=== PATIENT | male | born 1975 | race Caucasian/White ===

== ENCOUNTER 2020-01-05 10:57 | Outpatient (CLI) | payer BC, SELFPAY ==
--- NOTE | 2020-01-05 10:44 | DI.RAD_ITS ---
EXAM: XR LUMBAR SPINE COMPLETE CLINICAL HISTORY: BACK PAIN WITH RADICULOPATHY, M54.16. TECHNIQUE: 2D digital imaging was performed. COMPARISON: No exams were available for comparison FINDINGS: There are 5 lumbar type vertebral bodies. There is normal alignment. There does appear to be spondy lolysis at L5 but no spondylolisthesis. No acute fracture or subluxation is seen. The bones are nor crayn mineralized. The disc spaces are well maintained. The soft tissues are unremarkable. IMPRESSION: Unremarkable radiographs of the lumbar spine. DATA REPOSITORY: RADIATION DOSE DELIVERED:
== END 2020-01-05 11:17 ==
PROVIDERS: PCP Physician Assistant; Visit Provider Nurse Practitioner
DX: M54.16 Radiculopathy, lumbar region (principal); M43.06 Spondylolysis, lumbar region
CPT/HCPCS: 72110

== ENCOUNTER 2021-01-30 01:55 | Outpatient (CLI) | payer BC, SELFPAY ==
--- NOTE | 2021-01-30 | DI.MRI_ITS ---
Exam(s) MR UPPER JOINT LT WO EXAM: MR UPPER JOINT LT WO CLINICAL HISTORY: LT SHOULDER PAIN AND INSTABILITY, WORSENING, H/O OLD DISLOCATION,M25.512. TECHNIQUE: Multiplanar multisequence MRI was performed. COMPARISON: CR XR SHOULDER LT COMPLETE 2+V from 01/30/2021 FINDINGS: BONES: There is no fracture or contusion pattern. JOINTS: Kdaf-ew-fhayvarp degenerative changes are seen at the acromioclavicular joint. The glenohume ral joint is normal. TENDONS: Supraspinatus: Unremarkable. Infraspinatus: Unremarkable. Subscapularis: Unremarkable. [place]: Unremarkable. Biceps and [place]: Unremarkable. MUSCLES: Unremarkable. GLENOID LABRUM: Unremarkable on this noncontrast examination. SOFT TISSUES: Unremarkable. LIGAMENTS: Unremarkable. OTHER: Subacromial and subdeltoid bursae are unremarkable. IMPRESSION: Moderate degenerative changes of the acromioclavicular joint. DATA REPOSITORY:
--- NOTE | 2021-01-30 14:44 | DI.RAD_ITS ---
Exam(s) XR SHOULDER LT COMPLETE 2+V EXAM: XR SHOULDER LT COMPLETE 2+V CLINICAL HISTORY: LT SHOULDER PAIN, M25.512,INSTABILITY, WORSENING, H/O OLD DISLOCATIONS. TECHNIQUE: 2D digital imaging was performed. COMPARISON: No exams were available for comparison FINDINGS: No acute fracture or dislocation. The glenohumeral joint is well maintained. Mild hypertrophic brunson ges are seen at the acromioclavicular joint. The bones are normally mineralized. The soft tissues a re unremarkable. IMPRESSION: Degenerative changes of the left AC joint. DATA REPOSITORY: RADIATION DOSE DELIVERED:
== END 2021-01-30 02:15 ==
PROVIDERS: PCP Physician Assistant; Visit Provider Physician Assistant
DX: M19.012 Primary osteoarthritis, left shoulder (principal); M25.312 Other instability, left shoulder; Z87.828 Personal history of other (healed) physical injury and trauma
CPT/HCPCS: 73030; 73221

== ENCOUNTER 2021-09-30 04:06 | Outpatient (CLI) | payer BC, SELFPAY ==
[2021-09-30 08:16] LABS: Source Nasal/Nares
[2021-09-30 08:58] LABS: COVID-19 PCR Negative (Negative)
== END 2021-09-30 04:07 | disposition home or self-care (01) ==
LOC: LBO 04:06
PROVIDERS: PCP Physician Assistant; Visit Provider Student in an Organized Health Care Education/Training Program
DX: Z20.822 Contact with and (suspected) exposure to COVID-19 (principal); Z01.818 Encounter for other preprocedural examination
CPT/HCPCS: 87635

== ENCOUNTER 2021-10-01 06:11 | Day surgery (SDC) | payer BC, SELFPAY ==
[2021-10-01 06:37] VITALS: BP 137/102; PULSE 79; RESP 16; TEMP 36.8; O2SAT 97
--- NOTE | 2021-10-01 06:57 | W.ANESPRE ---
General Info Date of Service Date Performed: 10/01/21 Height: 5 ft 11.75 in Weight: 114.1 kg Body Mass Index (BMI): 34.3 Surgical Procedure: Operation Date: 10/01/21 07:40 Proposed Procedure Side Surgeon p Wrist ECTR Right Anthony Carreon MD Meds Allergies and Home Medications Allergies Allergy/AdvReac Type Severity Reaction Status Date / Time No Known Allergies Allergy Verified 10/01/21 06:30 Home Medication Medication Instructions Recorded omeprazole 40 mg capsule,delayed 40 mg PO DAILY tab-cap 07/06/17 release golimumab 50 mg/0.5 mL 50 mg SUBCUT QMONTH 02/26/21 subcutaneous pen injector (Simponi) metoprolol succinate 25 mg 25 mg PO DAILY 02/26/21 tablet,extended release 24 hr valsartan 40 mg tablet (Diovan) 160 mg PO BID tab 02/26/21 folic acid 1 mg tablet 2 mg PO DAILY tab 06/24/21 methotrexate (PF) 20 mg/0.8 mL 20 mg SUBCUT QWEEK ml 06/24/21 subcutaneous syringe apremilast 30 mg tablet (Otezla) 30 mg PO BID 08/29/21 acetaminophen 500 mg tablet 1,000 mg PO Q8H PRN #60 tab 10/01/21 fluticasone 250 mcg-salmeterol 50 1 inh INHALATION DAILY 10/01/21 mcg/dose blistr powdr for inhalation (Advair Diskus) meloxicam 15 mg tablet 15 mg PO DAILY PRN #30 tab 10/01/21 Current Visit Medications: Current Medications Generic Name Dose Route Start Last Admin Trade Name Alexandrq PRN Reason Stop Dose Admin Ringer's Solution 1,000 mls @ 80 mls/hr 10/01/21 06:00 IV 10/24/21 23:59 INFUSION PATRICIA Cefazolin Sodium/Dextrose 2 gm in 50 mls @ 100 mls/hr 10/01/21 06:00 Ancef Duplex IVPB 10/01/21 23:59 PREOP PATRICIA IV Miscellaneous Supplies 1 each 10/01/21 06:00 Iv Access IV 10/24/21 23:59 DIRECTED PATRICIA Sodium Chloride 0 ml 10/01/21 06:00 Normal Saline Flush 10 Ml Syr IV 10/24/21 23:59 PRN PRN Sodium Chloride 0 ml 10/01/21 06:00 Normal Saline 10 Ml Vial IJ 10/24/21 23:59 DIRECTED PRN Sterile Water 0 ml 10/01/21 06:00 Water,Injection,Sterile 10 Ml Vial IJ 10/24/21 23:59 DIRECTED PRN PFSH Active Problems Active Problems: Problem Status Onset Code Arthritis of left acromioclavicular joint M19.012 SLAP lesion of left shoulder S43.432A Instability of left shoulder joint M25.312 Labral tear of left hip joint S73.192A Carpal tunnel syndrome of right wrist G56.01 Medical History Medical History Asthma GERD (gastroesophageal reflux disease) History of meniscal tear Hypertension Psoriatic arthritis Medical History Comments:: Pt. stated he had a previous endoscopy and stated he was told he had a narrowing of his airway. Pt. states he has nausea with general anesthesia Surgical History Surgical History Hx of endoscopy Pt. stated he had a previous endoscopy and stated he was told he had a narrowing of his airway S/P arthroscopic knee surgery Tobacco Smoking/Tobacco Use Status: Current-Occasional Tobacco Type: cigars Alcohol Alcohol Intake: current Alcohol intake frequency: a few times a month Alcohol type: beer and hard liquor Substance Use Substance use: Never Substance use type: does not use Details: alcohol: t-4, beer Vital Signs and Lab Results Vital Signs Most Recent Vital Signs in EMR: Most Recent Vital Signs Temp Pulse Resp BP Pulse Ox 36.8 C 79 16 137/102 H 97 10/01/21 06:37 10/01/21 06:37 10/01/21 06:37 10/01/21 06:37 10/01/21 06:37 Lab Results Blood Type / Crossmatch: No Data to Display Complete Blood Count: No Data to Display Complete Metabolic Panel: No Data to Display Liver Function Panel: No Data to Display Coagulation Panel: No Data to Display Cardiac Panel: No Data to Display Arterial Blood Gas: No Data to Display Venous Blood Gas: No Data to Display Pancreas Panel: No Data to Display Thyroid Panel: No Data to Display Infectious Disease: Coronavirus (COVID-19)(PCR) Negative (Negative) 09/30/21 05:55 09/30/21 Coronavirus 2019 Source Nasal/Nares 09/30/21 05:55 09/30/21 Blood Cultures: No Data to Display Toxicology Panel: No Data to Display Anesthesia Assessment and Plan Anesthesia History Personal History: PONV Family History: No Family History of Anesthesia Complications Exercise Tolerance Exercise Tolerance: Metabolic Equivalents>4 Pertinent Negatives Pertinent Negatives: No Major Pulmonary Symptoms or Complaints Cardiac & Pulmonary Exam Cardiac Exam: Normal S1/S2 Heart Sounds Pulmonary Exam: Clear Bilateral Breath Sounds Implantable Cardiac Device Does patient have a Pacemaker or an ICD?: No Airway Exam Known Difficult Airway: No Previous Airway Comments:: Reports during a previous EGD the anesthesia providers let him know that he had a narrowing of his airway. Mallampati Class: 2 Mouth Opening: Normal (> 3cm) Thyromental Distance: Greater than 3 cm Neck Range of Motion: Full ROM Neck Circumference: Thick Teeth Condition: Normal Dentition Airway Comments: Non-compliant with CPAP ASA Classification ASA Score: ASA 2 Emergency Case?: No NPO Status NPO Status: NPO Clears >2 hours, Solids >8 hours Anesthesia Plan Resuscitation Status: Full Code Anesthesia Technique: General Anesthesia Airway Planned: Natural Airway Monitors Used: Standard Monitors
[2021-10-01] MEDS: Lactated Ringers 1,000 ML 80 ML IV (06:58)
[2021-10-01 06:59] VITALS: BMI 34.3
--- NOTE | 2021-10-01 07:03 | W.PREOPHP ---
Assessment and Plan Assessment and plan (1) Carpal tunnel syndrome of right wrist: Status: Acute Assessment and plan: Ian is a 46-year-old who has carpal tunnel syndrome of the right side. At the previous office visit, I offered a carpal tunnel release. Once again,I discussed the technical details of carpal tunnel release and that I perform an endoscopic release, but would make a larger, open, incision if necessary for visualization. I discussed the risks of the procedure to include, but not limited to, bleeding, infection, palmar pain, stiffness, damage to nerves, damage to vessels, damage to tendons, weakness, recurrence, and incomplete release. Given these risks, Ian desires to proceed. History of Present Illness Narrative: Ian is a 46-year-old who has carpal tunnel syndrome of the right hand. He has been seen in the office for this diagnosis. Please see the office note for complete detailed history. He has no changes to his history. No new medical changes. No chest pain or shortness of breath. COVID-19 negative. Review of Systems All systems reviewed & are unremarkable except as noted in HPI and below PFSH All Active Problems Arthritis of left acromioclavicular joint (Acute) SLAP lesion of left shoulder (Acute) Instability of left shoulder joint (Acute) Labral tear of left hip joint (Acute) Carpal tunnel syndrome of right wrist (Acute) Medical History Asthma GERD (gastroesophageal reflux disease) History of meniscal tear Hypertension Psoriatic arthritis Surgical History Hx of endoscopy Pt. stated he had a previous endoscopy and stated he was told he had a narrowing of his airway S/P arthroscopic knee surgery Family History Father Hypertension Hyperlipidemia Diabetes Heart disease Mother Hypertension Multiple sclerosis Social History Smoking/Tobacco Use Status: Current-Occasional Tobacco Type: cigars Smoking risk assessment performed?: Yes Alcohol Intake: current Alcohol Intake frequency: a few times a month Alcohol type: beer and hard liquor Drug use: Never Substance use type: does not use Details: alcohol: t-4, beer Household members: family Number of Children: 1 current occupation: [employer] Current gender identity: male Do you feel safe at home: Yes Do you feel safe in your relationship?: Yes Meds Allergies and Home Medications Allergies Allergy/AdvReac Type Severity Reaction Status Date / Time No Known Allergies Allergy Verified 10/01/21 06:30 Home Medications Medication Instructions Recorded Confirmed Type omeprazole 40 mg capsule,delayed 40 mg PO DAILY tab-cap 07/06/17 10/01/21 History release golimumab 50 mg/0.5 mL 50 mg SUBCUT QMONTH 02/26/21 10/01/21 History subcutaneous pen injector (Simponi) metoprolol succinate 25 mg 25 mg PO DAILY 02/26/21 10/01/21 History tablet,extended release 24 hr valsartan 40 mg tablet (Diovan) 160 mg PO BID tab 02/26/21 10/01/21 History folic acid 1 mg tablet 2 mg PO DAILY tab 06/24/21 10/01/21 History meloxicam 15 mg tablet 15 mg PO DAILY PRN 06/24/21 10/01/21 History methotrexate (PF) 20 mg/0.8 mL 20 mg SUBCUT QWEEK ml 06/24/21 10/01/21 History subcutaneous syringe apremilast 30 mg tablet (Otezla) 30 mg PO BID 08/29/21 10/01/21 History fluticasone 250 mcg-salmeterol 50 1 inh INHALATION DAILY 10/01/21 10/01/21 History mcg/dose blistr powdr for inhalation (Advair Diskus) Exam Resp Auscultation: clear to auscultation bilaterally Cardio Rate: regular rate Rhythm: regular rhythm Results Last Vital Signs Temp 36.8 C 10/01/21 06:37 Pulse 79 10/01/21 06:37 Resp 16 10/01/21 06:37 BP 137/102 H 10/01/21 06:37 Pulse Ox 97 10/01/21 06:37
--- NOTE | 2021-10-01 07:07 | PDOC.DSDIS_ITS ---
Discharge Plan Disposition Patient Disposition: HOME Condition: Good Discharge Details Reason For Visit: Right Carpal Tunnel Syndrome Attending Provider: Anthony Carreon Primary Care Provider: Dylan Card Home Meds and New Rx's Prescriptions: New acetaminophen 500 mg tablet 1,000 mg PO Q8H PRN (Reason: pain) Qty: 60 3RF Continued Simponi 50 mg/0.5 mL pen injector 50 mg subcut QMONTH 0RF metoprolol succinate 25 mg tablet extended release 24 hr 25 mg PO DAILY 0RF folic acid 1 mg tablet 2 mg PO DAILY 0RF methotrexate (PF) 20 mg/0.8 mL syringe 20 mg subcut QWEEK 0RF Otezla 30 mg tablet 30 mg PO BID 0RF omeprazole 40 MG capsule,delayed release(DR/EC) 40 mg PO DAILY 0RF valsartan [Diovan] 40 mg tablet 160 mg PO BID 0RF fluticasone propion-salmeterol [Advair Diskus] 250-50 mcg/dose Blister With Device 1 inh INHALATION DAILY 0RF meloxicam 15 mg tablet 15 mg PO DAILY PRNQty: 30 1RF Discharge Instructions Additional Instructions: You may take OTC Ibuprofen (600-800mg every 8 hours as needed) or Meloxicam. I called in Meloxicam and Tylenol. Stand Alone Forms: Velma Linda Tunnel Release Referrals: Anthony Carreon MD [ [facility] STAFF PHYSICIAN] - Activity:: Elevate Remove Dressings/Wound Care:: 48 hours Shower/Bathe:: 48 hours Diet:: As Tolerated Discharge Orders Discharge Orders: Discharge Order (Routine); Ordered 10/01/21 Ordered By: Anthony Carreon DS: Diagnosis Discharge Diagnosis (1) Carpal tunnel syndrome of right wrist: Status: Acute
[2021-10-01] MEDS: ceFAZolin 2 GM/50 ML BAG IVPB (07:20)
[2021-10-01] MEDS: Sodium Bicarbonate 50 MEQ/50 ML VIAL (07:30)
[2021-10-01 07:42] VITALS: BP 120/85; PULSE 73; RESP 12; TEMP 36.4; O2SAT 97
--- NOTE | 2021-10-01 08:05 | W.ANESPOSTOP ---
Postoperative Evaluation Date, Time and Location Date Performed: 10/01/21 Time Performed: 07:42 Patient Location: Day Surgery Unit Vital Signs Most Recent Imported Vital Signs: Most Recent Vital Signs Temp Pulse Resp BP Pulse Ox 36.4 C L 73 12 120/85 97 10/01/21 07:42 10/01/21 07:42 10/01/21 07:42 10/01/21 07:42 10/01/21 07:42 Pain Score Most Recent Pain Score: Most Recent Pain Score Pain Level 0 10/01/21 07:42 Assessment Mental Status: Awake (Alert & Oriented to Patient Baseline) Airway and Respiratory Function: Patent airway with normal (patient baseline) respiratory exam Cardiovascular Function: Hemodynamically Stable Hydration Status: Adequately Hydrated Nausea & Vomiting: No Nausea or Vomiting Pain: Pt. Denies Any Pain Peripheral Nerve Block: Regional nerve block not resolved at time of post operative discharge Teaching Patient Teaching: Discussed Safe Use of Pain Medication Given Likely or Known JEFFERY (Discussed reinitiating his use of CPAP machine at home)
[2021-10-01 08:08] VITALS: BP 116/86; PULSE 69; RESP 14; TEMP 36.1; O2SAT 96
[2021-10-01 08:20] VITALS: BP 116/81; PULSE 69; RESP 12; TEMP 36.1; O2SAT 95
[2021-10-01] MEDS: Droperidol 5 MG/2 ML VIAL 0.625 MG IVP (08:27)
[2021-10-01 08:35] VITALS: BP 127/81; PULSE 72; RESP 14; TEMP 36.1; O2SAT 96
--- NOTE | 2021-10-01 09:26 | W.PM.OP ---
Date of service: 10/01/21 Time of Service: 07:40 Operative Note Operative Note PRE-OP DIAGNOSIS: Right Carpal Tunnel Syndrome POST-OP DIAGNOSIS: same PROCEDURE: Right Endoscopic Carpal Tunnel Release SURGEON: Anthony Carreon ANESTHESIA TYPE: General:No Airway Refer to Anesthesia Record ESTIMATED BLOOD LOSS: 0 PATHOLOGY: none sent TOURNIQUET TIME: 4 COMPLICATIONS: None Patient was transported to: same day Patient's condition: stable Indications: I have seen Ian in clinic for symptoms of carpal tunnel syndrome. The numbness, tingling, and pain limited function. Clinical exam findings with nerve conduction tests confirmed the diagnosis of carpal tunnel syndrome. Nonoperative measures such as bracing, time, activity modifications had been tried but disability and pain persisted. I discussed carpal tunnel release with the patient. I reviewed the risks of the procedure to include, but not limited to, bleeding, infection, pain, stiffness, incomplete release, damage to nerves or vessels, persistent numbness, recurrence. Despite these risks, the patient elected to proceed. Findings: There was tightened carpal tunnel. This was dilated and released successfully with the endoscopic with increased space within the tunnel. The antebrachial fascia was released proximally freeing the median nerve at the wrist. Procedure Description: Ian was greeted in the preoperative holding area where the correct side was identified and marked. The consent was reviewed with the patient and signed. The history and physical was updated. All questions were answered. He was taken back to the operating room. The patient was placed into the supine position on the operating room table with the right arm on an arm board. A nonsterile tourniquet was placed high onto the arm. All bony prominences were well padded. Prophylactic antibiotics in the form of Cefazolin were administered. The right arm was then prepped with Chloraprep and draped in a standard fashion with stockinette and extremity drape. A timeout to confirm correct identity, side and site, procedure, allergies, anesthesia, and medical concerns was performed. The surgical site was marked in the volar wrist creases in line with the radial border of the fourth ray. This area was anesthetized with approximately 6cc of 1% Lidocaine. The limb was then exsanguinated with an Esmarch. The skin was incised with a 15 blade, approximately 1cm. The skin only was cut and the deeper tissue was dissected bluntly with a tenotomy scissor, avoiding passing nerve and venous structures. The fascia was penetrated and opened bluntly. A two-prong skin hook was placed under this proximal fascial edge. A series of hamate finders were used to identify and dilate the carpal tunnel. Synovial elevator was used to free synovial attachments to the underside of the transverse carpal ligament. My thumb was kept in the palm to alecia the distal extent of the carpal tunnel and correctly position the hand. The Microaire endoscope was inserted without difficulty and without resistance. Excellent visualization showed horizontally running fibers of the transverse carpal ligament (TCL). The distal extent of the TCL was visualized and the end of the scope palpated with the thumb. The blade was elevated and withdrawn from distal to proximal. The TCL was split into two flaps. The endoscope was reinserted to confirm complete release and any remnant ligament was incised. The scope was withdrawn and the proximal aspect of the carpal tunnel was grossly inspected and appeared release with the median nerve visible. The antebrachial fascia at the level of the wrist was then freed from the overlying skin and then the underlying median nerve with blunt dissection. This was transected longitudinally for about 3cm proximal to the wrist incision. The wound was then irrigated with easy flow of irrigant distally and proximally. The incision was closed with a single 4-0 Nylon suture. The wound was dressed with Xeroform, Gauze, Kerlix and Kerwin. The tourniquet was deflated with the initial dressing and held with some pressure. Blood flow returned easily to all digits with capillary refill less than 2 seconds. The patient tolerated the procedure well and was returned to the Same Day Surgery area in a stable condition suffering no known complication.
== END 2021-10-01 08:57 | disposition home or self-care (01) ==
PROVIDERS: PCP Physician Assistant; Visit Provider Student in an Organized Health Care Education/Training Program
PROC: 01N54ZZ Release Median Nerve, Percutaneous Endoscopic Approach (ICD-10-PCS; CPT 29848; principal; 2021-10-01 07:30)
DX: G56.01 Carpal tunnel syndrome, right upper limb (principal); K21.9 Gastro-esophageal reflux disease without esophagitis; I10 Essential (primary) hypertension; J45.909 Unspecified asthma, uncomplicated
CPT/HCPCS: 29848; J0690; J1100; J1790; J1885; J2001; J2405; J3010

== ENCOUNTER 2021-10-16 09:07 | Outpatient (CLI) | payer BC, SELFPAY ==
--- NOTE | 2021-10-16 08:15 | DI.MRI_ITS ---
Exam(s) MR UPPER JOINT RT WO EXAM: MR UPPER JOINT RT WO CLINICAL HISTORY: Acute median nerve neuritis-s/p ECTR 10/01, G56.11, G56.01 TECHNIQUE: Multiplanar right wrist performed. COMPARISON: No exams were available for comparison FINDINGS: MARROW:No evidence of fracture or avascular necrosis. No significant osseous lesions. No significan t ulnar variance. ARTICULATIONS: No erosions. No evidence of para-articular ganglion cyst. LIGAMENTS: The scapholunate ligament appears intact. Lunotriquetral ligament appears intact. TRIANGULAR FIBROCARTILAGE COMPLEX: Mild degenerative change. No tear. CARPAL TUNNEL: There is mild edema within the carpal tunnel. There is a surgical defect in the volar retinaculum of the carpal tunnel. There is fusiform enlargement (6 by 7 millimeter) and signal abno rmality consistent with edema of the median nerve which is immediately subjacent to the retinaculum d efect. Signal abnormality extends for a distance of approximately 5 cm along the nerve. TENDONS: There appears to be tendinosis and tenosynovitis of the extensor carpi radialis brevis and l ongus tendons within the 2nd extensor compartment. There is also tendinosis signal in the extensor o r carpi ulnaris tendon MUSCLES: No muscle tears nor myositis signal. IMPRESSION: 1. There is evidence of surgical release of the flexor retinaculum of the carpal tunnel. There is so me edema within carpal tunnel and there is enlargement and edema of the median nerve, this spanning t he length of the carpal tunnel, compatible with inflammatory neuritis. 2. Tendinosis signal and tenosynovitis of the extensor carpi radialis tendons within the 2nd extensor compartment. 3. There is also tendinosis signal in the extensor carpi ulnaris tendon. 3. DATA REPOSITORY:
--- NOTE | 2021-10-16 16:30 | DI.VRAD_ITS ---
PROCEDURE INFORMATION: Exam: MR Right Upper Extremity Joint Without Contrast; Wrist Exam date and time: 10/16/2021 3:01 PM Age: 46 years old Clinical indication: Pain; Finger(s) and hand and wrist; Right; Prior surgery; Surgery date: <1 month; Surgery type: Ectr 10/01/21 TECHNIQUE: Imaging protocol: MR of the Right upper extremity without contrast. Exam focused on the wrist. COMPARISON: MR UPPER EXTREMITIES ADULT 05/16/2021 11:53 AM FINDINGS: Bones and cartilage: No acute fracture. No dislocation. Joint spaces: Minimal degenerative change of the thumb MCP joint. Trace intercarpal joint effusions. Scapholunate ligament: Unremarkable. No tear. Lunotriquetral ligament: Unremarkable. No tear. Triangular fibrocartilage complex: Mild degeneration of the ulnar aspect of the triangular fibrocartilage. Flexor compartment tendons: There is trace fluid tracking within the flexor pollicis longus tendon sheath, extending to the level of the thumb proximal phalanx. There is trace fluid tracking within the little finger flexor digitorum profundus and superficialis tendon sheaths, extending to the level of the proximal phalanx. Extensor compartment tendons: Small amount of fluid in the 2nd extensor compartment. Mild extensor carpi ulnaris tendinosis. Muscles: Unremarkable. No acute abnormality. Nerves: Fusiform enlargement and edema of the median nerve within the carpal tunnel. Maximum transverse dimensions of the nerve measure 7 mm x 6 mm. Fusiform enlargement and edema of the nerve spans a length of approximately 5.7 cm. Focal irregularity of the volar margin of the nerve within the proximal carpal tunnel, at the level of the radiocarpal joint (series 6001, image 31). Soft tissues: There is a complete defect of the flexor retinaculum, compatible with history of carpal tunnel release surgery. There is mild to moderate edema throughout the carpal tunnel. IMPRESSION: 1. Fusiform enlargement and edema of the median nerve, spanning the entire length of the carpal tunnel, compatible with neuritis. Focal irregularity of the volar margin of the nerve within the proximal aspect of the carpal tunnel, which may reflect a focal nerve injury. 2. Jita-js-ppqwsynq edema within the carpal tunnel. Status post surgical release of the flexor retinaculum. 3. Mild 2nd extensor compartment, flexor pollicis longus, and little finger flexor digitorum tenosynovitis. 4. Mild degeneration of the triangular fibrocartilage. 5. Trace intercarpal joint effusions. 6. Mild extensor carpi ulnaris tendinosis. Please note that this is a preliminary report. The separate, final report is to follow. Dictated and Authenticated by: Yasmin Solorzano MD. Ordering:MICHAEL Cruz MD
== END 2021-10-16 09:27 ==
PROVIDERS: PCP Physician Assistant; Visit Provider Student in an Organized Health Care Education/Training Program
DX: G56.01 Carpal tunnel syndrome, right upper limb (principal); G56.11 Other lesions of median nerve, right upper limb; M65.841 Other synovitis and tenosynovitis, right hand
CPT/HCPCS: 73221

== ENCOUNTER 2022-10-15 14:50 | Outpatient (REF) | payer BC, SELFPAY ==
[2022-10-15 16:06] LABS: HCT 47.1 % (40.0-50.0); HGB 16.1 g/dL (13.5-17.5); MCH 29.9 pg (27.0-33.0); MCHC 34.2 % (32.0-36.0); MCV 87 fL (80-95); MPV 9.4 fL (8.0-11.0); Platelet Count 279 10^3/uL (130-400); RBC 5.39 10^6/uL (4.36-5.78); RDW 11.8 % (11.8-14.1); RDW-SD 37.3 fL; WBC 6.25 10^3/uL (4.4-10.8)
[2022-10-15 16:38] LABS: Hemoglobin A1C 5.4 % (<5.7)
[2022-10-15 17:18] LABS: ALT 30 U/L (16-63); AST 31 U/L (15-37); Albumin 4.8 g/dL (3.4-5.0); Alkaline Phosphatase 63 U/L (46-116); Anion Gap 10.6 mmol/L (3-11); BUN 15 mg/dL (7-18); Bilirubin, Total 0.4 mg/dL (0.2-1.0); CO2 27.4 mmol/L (21.0-32.0); CREATININE 1.2 mg/dL (0.70-1.30); Calcium 9.7 mg/dL (8.5-10.1); Calculated LDL 119 mg/dL (<100); Chloride 101 mmol/L (98-107); Cholesterol 190 mg/dL (<200); Glucose 96 mg/dL (74-106); HDL Cholesterol 44 mg/dL (40-60); Potassium 3.8 mmol/L (3.5-5.1); Sodium 139 mmol/L (136-145); Total Protein 8.4 g/dL (6.4-8.2); Triglyceride 138 mg/dL (<150)
== END 2022-10-15 14:51 | disposition home or self-care (01) ==
LOC: NCHCN 14:50
PROVIDERS: PCP Physician Assistant; Visit Provider Physician Assistant
DX: R73.03 Prediabetes (principal); I10 Essential (primary) hypertension
CPT/HCPCS: 80053; 80061; 85027; 83036

== ENCOUNTER 2023-11-23 16:00 | Outpatient (REF) | payer BC, SELFPAY ==
[2023-11-23 16:19] LABS: HCT 46.4 % (40.0-50.0); HGB 16.2 g/dL (13.5-17.5); MCHC 34.9 % (32.0-36.0); MCV 89 fL (80-95); MPV 9.6 fL (8.0-11.0); Platelet Count 247 10^3/uL (130-400); RBC 5.23 10^6/uL (4.36-5.78); RDW 11.9 % (11.8-14.1); RDW-SD 38.5 fL; WBC 6.67 10^3/uL (4.4-10.8)
[2023-11-23 16:37] LABS: ALT 51 U/L (16-63); AST 42 U/L (15-37); Albumin 4.5 g/dL (3.4-5.0); Alkaline Phosphatase 72 U/L (46-116); Anion Gap 10.1 mmol/L (3-11); BUN 19 mg/dL (7-18); Bilirubin, Total 0.4 mg/dL (0.2-1.0); CO2 25.9 mmol/L (21.0-32.0); CREATININE 1.2 mg/dL (0.70-1.30); Calcium 9.3 mg/dL (8.5-10.1); Calculated LDL 147 mg/dL (<100); Chloride 104 mmol/L (98-107); Cholesterol 226 mg/dL (<200); Estimated GFR 75.53 (mL/min/1.73m2); Glucose 99 mg/dL (74-106); HDL Cholesterol 42 mg/dL (40-60); Potassium 4.3 mmol/L (3.5-5.1); Sodium 140 mmol/L (136-145); Total Protein 8.1 g/dL (6.4-8.2); Triglyceride 188 mg/dL (<150)
[2023-11-23 16:48] LABS: Hemoglobin A1C 5.5 % (<5.7)
== END 2023-11-23 16:01 | disposition home or self-care (01) ==
LOC: NCHCN 16:00
PROVIDERS: PCP Physician Assistant; Visit Provider Physician Assistant
DX: Z00.00 Encounter for general adult medical examination without abnormal findings (principal); I10 Essential (primary) hypertension; R73.03 Prediabetes
CPT/HCPCS: 80053; 80061; 85027; 83036